=== PATIENT | female | born 1970 | race American Indian/Alaskan Native ===

== ENCOUNTER 2018-04-21 12:58 | Outpatient (CLI) | payer OTHER ==
[2018-04-21] MEDS ORDERED: NACL 0.9% 50 ML ONE (13:41)
--- NOTE | 2018-04-21 14:37 | Cat Scan Report ---
CTA CHEST: HISTORY: chest pain. COMPARISON: none. TECHNIQUE: Helical CT in 1.25mm intervals following IV contrast. Pulmonary embolus protocol. Sagittal and coronal reformatted images. Rotational MIP images. FINDINGS: Contrast bolus is satisfactory. No pulmonary embolus is identified. Thyroid gland: Normal. Tracheobronchial tree: Normal. Esophagus: Normal. Heart: Normal. Pericardium: Normal. Mediastinum: Normal. Lung Chery: normal. Pleural Spaces: Normal. Musculoskeletal: Normal. IMPRESSION: No evidence for pulmonary embolus. Unremarkable CT chest with contrast.
== END 2018-04-21 12:59 | disposition home or self-care (01) ==
LOC: CT 12:58
PROVIDERS: ATTEND Internal Medicine Cardiovascular Disease
DX: R07.9 Chest pain, unspecified (principal)
CPT/HCPCS: 71275; Q9967

== ENCOUNTER 2019-04-04 08:15 | Outpatient (CLI) | payer OTHER ==
--- NOTE | 2019-04-04 16:11 | Ultrasound Report ---
RIGHT BREAST ULTRASOUND HISTORY: Enlarged axillary lymph node COMPARISON: December 2018 ultrasound and mammogram from [facility]. FINDINGS: Ultrasound of all 4 quadrants and the retroareolar right breast was performed and demonstra charanjit normal fibroglandular and fatty structures with no solid mass or shadowing. Ultrasound of the rig ht axilla demonstrated a 2 cm lymph node with central fat and a lobular contour. Mild cortical thicke ty of 4.5 mm. IMPRESSION A stable probably benign right axillary lymph node and and otherwise negative right breast. Recommend 6 month follow-up right axillary ultrasound to reevaluate the lymph node. BIRADS 3: Probably benign. Signer Name: Soham Chaves MD Signed: 04/04/2019 4:06 PM Workstation Name: [id number]
== END 2019-04-04 08:16 | disposition home or self-care (01) ==
LOC: SPVWC 08:15
PROVIDERS: ATTEND Surgery
DX: N63.11 Unspecified lump in the right breast, upper outer quadrant (principal)

== ENCOUNTER 2019-04-25 10:35 | Outpatient (CLI) | payer OTHER ==
--- NOTE | 2019-04-27 11:56 | Magnetic Resonance Report ---
BILATERAL BREAST MR WITHOUT AND WITH GADOLINIUM INDICATION: High risk for breast cancer. She recently presented with a right breast lump which appea red to be a benign lymph node. COMPARISONS: 04/04/2019 right breast ultrasound TECHNIQUE: Axial 1.0 mm T1 without, axial high-resolution 2.0 mm T2 and axial 1.0 mm dynamic vibrant high-resolution postcontrast T1 fat saturation sequences on a 1.5 Leora magnet. The examination was p erformed with an 8-channel dedicated [place] breast coil. Post-processing with CAD and subtraction was performed on an [employer] workstation. 19.0 cc of MultiHance was injected without incident for the c ontrast portion of the exam. Consent was obtained prior to the administration of the contrast. FINDINGS: RIGHT BREAST: Minimal background parenchymal enhancement. No mass or suspicious enhancement. A lymph node in the axillary tail approximately 15 cm from the nipple measures 16 x 14 x 10 mm. It has benign morphology and correlates with the recently described palpable lymph node. No suspicious lymph nodes . LEFT BREAST: Minimal background parenchymal enhancement. No mass or suspicious enhancement. No suspic ious lymph nodes. IMPRESSION: Negative study with a benign right axillary tail lymph node. Recommend clinical follow-up and routine mammographic screening. BI-RADS Category 2: Benign : Signer Name: Soham Chaves MD Signed: 04/27/2019 11:52 AM Workstation Name: [id number]
== END 2019-04-25 10:36 | disposition home or self-care (01) ==
LOC: SPVIMAG 10:35
PROVIDERS: ATTEND Surgery
DX: R59.9 Enlarged lymph nodes, unspecified (principal); Z80.3 Family history of malignant neoplasm of breast; Z80.41 Family history of malignant neoplasm of ovary
CPT/HCPCS: A9577; C8908; 77049

== ENCOUNTER 2019-10-10 09:48 | Outpatient (CLI) | payer OTHER ==
--- NOTE | 2019-10-10 11:24 | Ultrasound Report ---
LIMITED RIGHT AXILLARY ULTRASOUND HISTORY: Follow-up of a probably benign lymph node. COMPARISON: 04/04/2019 FINDINGS: Focused sonographic evaluation of the right axilla reveals no significant change in the bridger earance of a previously identified lymph node with central fat and mild cortical thickening. It measu res 1.7 compared to 1.9 cm on the last exam. Cortex measures 4 mm maximum. IMPRESSION: A benign right axillary lymph node without significant change. BIRADS 2: Benign Signer Name: Soham Chaves MD Signed: 10/10/2019 11:20 AM Workstation Name: [id number]
== END 2019-10-10 09:49 | disposition home or self-care (01) ==
LOC: SPVWC 09:48
PROVIDERS: ATTEND Surgery
DX: D36.0 Benign neoplasm of lymph nodes (principal)

== ENCOUNTER 2020-02-27 08:32 | Outpatient (CLI) | payer OTHER ==
--- NOTE | 2020-02-27 09:39 | Ultrasound Report ---
EXAMINATION: Right Limited Breast Ultrasound, 02/27/2020 INDICATION: H/O RIGHT AXILLARY LYMPHADENOPATHY COMPARISON: Right breast ultrasound 04/04/2019 and 10/10/2019. FINDINGS: Targeted ultrasound evaluation was performed of the area of interest. There are 2 adjacent benign-appearing lymph nodes in the right axilla. The largest lymph node measures 1.9 cm long axis a nd 7 mm short axis. The other lymph node measures 1.6 cm long axis and 11 mm short axis. No cortical thickening is seen. Both lymph nodes demonstrate normal fatty joseph. No new suspicious abnormality is seen. IMPRESSION: 2 benign-appearing right axillary lymph nodes. Follow up recommendation: Routine yearly BI-RADS Category 2: Benign. Signer Name: Houston Vyas MD Signed: 02/27/2020 9:35 AM Workstation Name: [id number]
== END 2020-02-27 08:33 | disposition home or self-care (01) ==
LOC: SPVWC 08:32
PROVIDERS: ATTEND Surgery
DX: R59.9 Enlarged lymph nodes, unspecified (principal)

== ENCOUNTER 2021-02-06 07:58 | Outpatient (CLI) | payer OTHER ==
--- NOTE | 2021-02-06 18:18 | Mammography Report ---
DIGITAL SCREENING MAMMOGRAM WITH CAD, 02/06/2021 CLINICAL INFORMATION / INDICATION: Routine screening mammography. TECHNIQUE: Digital bilateral 2D mammography was obtained in the craniocaudal and mediolateral obliqu e projections. This examination was interpreted with the benefit of Computer-Aided Detection analysis . COMPARISON: 02/06/2020 FINDINGS: Breast Density: There are scattered areas of fibroglandular density. No dominant mass, suspicious calcifications, or architectural distortion in either breast. IMPRESSION: No mammographic evidence of malignancy. Follow up recommendation: Routine yearly BI-RADS Category 1: Negative. A "normal" or negative report should not discourage follow up or biopsy of a clinically significant f inding. A written summary of these findings will be mailed to the patient. The patient will be entered into a mammography reporting system which will generate a reminder letter for the patient's next appointmen t at the appropriate interval. The [employer] recommends yearly mammograms starting at age 40 and continuing as l radha as a woman is in good health. Breast MRI is recommended for women with an approximate 20-25% or greater lifetime risk of breast cancer, including women with a strong family history of breast or ova arvind cancer or who have been treated for Hodgkin's disease. Signer Name: Jessica Kennedy MD Signed: 02/06/2021 6:14 PM Workstation Name: [id number]
== END 2021-02-06 07:59 | disposition home or self-care (01) ==
LOC: SPVWC 07:58
PROVIDERS: ATTEND Surgery
DX: Z12.31 Encounter for screening mammogram for malignant neoplasm of breast (principal); N64.89 Other specified disorders of breast
CPT/HCPCS: 77067